=== PATIENT | female | born 1995 | race Caucasian/White ===

== ENCOUNTER → 2018-10-14 | Outpatient (CLI) | payer OTHER ==
[~2018-10-14] MED LIST: No Historical Meds
--- NOTE | 2018-10-14 11:52 | REP ---
Clinical: Pelvic pain. Evaluate IUD. Technique: Transabdominal pelvic ultrasound followed by transvaginal examination for better evaluation of the endometrium and adnexa. Findings: Bladder is unremarkable and measures 9.7 x 5.9 x 8.5 cm . Normal anteverted uterus measures 8.1 x 3.2 x 5.6 cm . The endometrial complex measures 2.2 mm thickness. No discrete uterine or endometrial abnormalities are appreciated. IUD identified in central satisfactory position. Bilateral ovaries are normal in appearance. Right ovary measures 3.3 x 2.2 x 2.9 cm. Left ovary measures 4.1 x 2.7 x 2.8 cm. No significant pelvic fluid. No adnexal mass lesion. Impression: 1. Normal pelvic ultrasound. IUD in satisfactory position. Electronically Signed by Mal Cantu MD 10/14/2018 11:44 A
== END ==
LOC: M RAD 10:46
PROVIDERS: ATTEND Advanced Practice Midwife
DX: Z97.5 Presence of (intrauterine) contraceptive device (principal)

== ENCOUNTER → 2019-02-19 | Outpatient (REF) | payer OTHER | LOC: M LAB REF 13:34 | PROVIDERS: ATTEND Advanced Practice Midwife | DX: Z12.4 Encounter for screening for malignant neoplasm of cervix (principal) ==

== ENCOUNTER → 2022-02-27 | Outpatient (CLI) | payer OTHER ==
[2022-02-27 10:28] LABS: FREE T4 1.2 NG/DL (0.76-1.46); THYROID STIMULATING HORMONE 1.54 uIU/ML (0.358-3.740)
[2022-02-27 10:30] LABS: PROGESTERONE 2.85 NG/ML
[2022-02-27 10:31] LABS: FOLLICLE STIMULATING HORMONE 4.1 mIU/mL; LUTEINIZING HORMONE 3.6 mIU/mL; PROLACTIN 18.2 NG/ML
== END ==
LOC: M PLALAB 07:31
PROVIDERS: ATTEND Specialist
DX: N92.6 Irregular menstruation, unspecified (principal)

== ENCOUNTER → 2022-08-29 | Outpatient (CLI) | payer OTHER ==
[~2022-08-29] MED LIST changes: +ISOVUE-370 76% 100ML VIAL As Ordered ONE
== END ==
LOC: M RADPRO 11:50
PROVIDERS: ATTEND Obstetrics & Gynecology
DX: N97.9 Female infertility, unspecified (principal)

== ENCOUNTER → 2022-09-04 | Outpatient (CLI) | payer OTHER ==
[~2022-09-04] MED LIST changes: -ISOVUE-370 76% 100ML VIAL As Ordered ONE
== END ==
LOC: M RAD 15:35
PROVIDERS: ATTEND Obstetrics & Gynecology
DX: N97.9 Female infertility, unspecified (principal)

== ENCOUNTER → 2022-11-08 | Outpatient (CLI) | payer OTHER | LOC: M WHC 13:18 | PROVIDERS: ATTEND Obstetrics & Gynecology | DX: N83.201 Unspecified ovarian cyst, right side (principal) ==

== ENCOUNTER → 2024-11-05 | Outpatient (REF) | payer BC ==
[2024-11-05 15:15] LABS: GC DNA AMPLIFICATION NEGATIVE (NEGATIVE)
== END ==
LOC: M PLALAB 11:28
PROVIDERS: ATTEND Nurse Practitioner Family
DX: Z34.80 Encounter for supervision of other normal pregnancy, unspecified trimester (principal)

== ENCOUNTER → 2024-11-05 | Outpatient (CLI) | payer BC | LOC: M PLALAB 11:46 | PROVIDERS: ATTEND Nurse Practitioner Family | DX: Z34.80 Encounter for supervision of other normal pregnancy, unspecified trimester (principal) ==

== ENCOUNTER → 2024-12-13 | Outpatient (CLI) | payer BC | LOC: M WHC 14:22 | PROVIDERS: ATTEND Nurse Practitioner Family | DX: Z34.80 Encounter for supervision of other normal pregnancy, unspecified trimester (principal) ==

== ENCOUNTER → 2025-01-06 | Outpatient (CLI) | payer BC | LOC: M WHC 12:09 | PROVIDERS: ATTEND Nurse Practitioner Family | DX: Z34.80 Encounter for supervision of other normal pregnancy, unspecified trimester (principal) ==

== ENCOUNTER → 2025-01-27 | Outpatient (CLI) | payer BC ==
[2025-01-27 14:07] LABS: HEMATOCRIT 36.5 % (36.0-47.0); HEMOGLOBIN 11.8 g/dl (12.0-15.5); MEAN CORPUSCULAR HEMOGLOBIN 31.3 pg (27.0-33.0); MEAN CORPUSCULAR HGB CONC 32.3 g/dl (32.0-36.5); MEAN CORPUSCULAR VOLUME 96.8 fl (80.0-96.0); PLATELET COUNT, AUTOMATED 289 10^3/uL (150-450); RED BLOOD COUNT 3.77 10^6/uL (4.00-5.40); WHITE BLOOD COUNT 8.8 10^3/uL (4.0-10.0)
[2025-01-27 15:06] LABS: HIV 1&2 SCREEN NEGATIVE (NEGATIVE)
[2025-01-27 15:14] LABS: HEPATITIS C VIRUS ABY INDEX 0.02 INDEX (<0.8)
[2025-01-27 15:30] LABS: Trichomonas vaginalis (AMP) NOT DETECTED (NEGATIVE)
[2025-01-27 15:54] LABS: GC DNA AMPLIFICATION NEGATIVE (NEGATIVE)
== END ==
LOC: M PLALAB 10:35
PROVIDERS: ATTEND Obstetrics & Gynecology
DX: Z34.92 Encounter for supervision of normal pregnancy, unspecified, second trimester (principal)

== ENCOUNTER 2025-04-23 11:36 | Outpatient (CLI) | payer BC ==
[~2025-04-23] VITALS: Ht 160 cm; Wt 93.7 kg
[2025-04-23 11:51] VITALS: BP 132/63
[2025-04-23] MEDS ORDERED: vitamin D PO (12:00)
[2025-04-23] MEDS ORDERED: PRENTAB9 PO (12:00)
[2025-04-23] MEDS ORDERED: HOME MED LIST COMPLETE! XX SCH (12:05)
[2025-04-23 12:17] VITALS: O2SAT 97
== END 2025-04-23 14:40 | disposition home or self-care (01) ==
LOC: M LDO 11:36
PROVIDERS: ATTEND Obstetrics & Gynecology
DX: O47.1 False labor at or after 37 completed weeks of gestation (principal); O09.813 Supervision of pregnancy resulting from assisted reproductive technology, third trimester; O99.213 Obesity complicating pregnancy, third trimester; E66.9 Obesity, unspecified; Z3A.39 39 weeks gestation of pregnancy
CPT/HCPCS: 59025; G0463

== ENCOUNTER 2025-04-24 11:10 | Inpatient (IN) | payer BC ==
[~2025-04-24] VITALS: Ht 160 cm; Wt 98.0 kg
[2025-04-24] VITALS (58 sets, daily range): BP systolic 81–227; BP diastolic 40–123
[~2025-04-24 11:10] MED LIST changes: +PRENTAB9 PO; +vitamin D PO
[2025-04-24] MEDS ORDERED: CARBOPROST TROMETHAMINE 250 MCG/ML AMP IM PRN (11:20)
[2025-04-24] MEDS ORDERED: OXYTOCIN DRIP 30 UNITS in IV 1 EA IV PRN (11:20)
[2025-04-24] MEDS ORDERED: TRANEXAMIC ACID INJection 1,000 MG in NS 100 ML IV PRN (11:20)
[2025-04-24] MEDS ORDERED: LIDOCAINE 1% MDV 20 ML VIAL INFIL PRN (11:20)
[2025-04-24] MEDS ORDERED: METHYLERGONOVINE MALEATE 0.2 MG/ML 1 ML VIAL IM PRN (11:20)
[2025-04-24 11:42] LABS: PLATELET COUNT, AUTOMATED 264 10^3/uL (150-450)
[2025-04-24] MEDS ORDERED: diphenhydrAMINE 50 MG/ML VIAL IV PRN (12:00)
[2025-04-24] MEDS ORDERED: EPIDURAL/PCA KEYS XX PRN (12:00)
[2025-04-24] MEDS ORDERED: ONDANSETRON 4MG 2ML VIAL IV PRN (12:00)
[2025-04-24] MEDS ORDERED: LR 500 ML IV PRN (12:00)
[2025-04-24] MEDS: LACTATED RINGER'S 1000 ML IV STA (12:00)
[2025-04-24] MEDS: LR 1,000 ML IV SCH (12:00)
[2025-04-24] MEDS ORDERED: NALOXONE INJ 0.4 MG/1 ML VIAL IV PRN (12:00)
[2025-04-24 12:39] LABS: HIV 1&2 SCREEN NEGATIVE (NEGATIVE)
[2025-04-24] MEDS: FENTANYL/ROPIVACAINE/NACL BAG 100 ML EPIDURAL SCH (12:59)
[2025-04-24 13:53] LABS: HEPATITIS C VIRUS ABY INDEX 0.08 INDEX (<0.8)
[2025-04-24] MEDS: ACETAMINOPHEN 500 MG TAB PO ONE (19:25)
[2025-04-25] VITALS (39 sets, daily range): BP systolic 101–171; BP diastolic 38–142; O2SAT 96
[2025-04-25] MEDS: OXYTOCIN DRIP 30 UNITS in IV 1 EA IV SCH ×2 (00:18→07:25)
[2025-04-25] MEDS: ACETAMINOPHEN 500 MG TAB PO ONE (05:53)
[2025-04-25] MEDS ORDERED: CALCIUM CARBONATE 500 MG CHEW U/D PO PRN (07:25)
[2025-04-25] MEDS ORDERED: ANUSOL HC CREAM 30 GM TOP PRN (07:25)
[2025-04-25] MEDS ORDERED: RHOGAM 300MCG (1500IU) INJ IM SCH (07:25)
[2025-04-25] MEDS ORDERED: DOCUSATE SODIUM 100 MG CAPSULE PO PRN (07:25)
[2025-04-25] MEDS ORDERED: LR 1,000 ML IV SCH (07:25)
[2025-04-25] MEDS ORDERED: IBUPROFEN 600 MG TAB PO PRN (07:25)
[2025-04-25] MEDS ORDERED: ACETAMINOPHEN 325 MG TAB PO PRN (07:25)
[2025-04-25] MEDS ORDERED: ONDANSETRON 4MG 2ML VIAL IV PRN (07:25)
[2025-04-25] MEDS: PRENATAL VITAMINS CHEWABLE TABLET PO SCH (09:00)
[2025-04-25] MEDS: IBUPROFEN 800 MG TAB PO PRN (13:43)
[2025-04-25] MEDS: ACETAMINOPHEN 500 MG TAB PO PRN (18:29)
[2025-04-25] MEDS: DIBUCAINE 1% OINTMENT 30 GM TOP PRN (18:37)
[2025-04-26 06:11] VITALS: BP 117/64; O2SAT 96
[2025-04-26 18:00] VITALS: BP 115/56; O2SAT 98
[2025-04-27 06:00] VITALS: BP 109/53; O2SAT 98
[2025-04-27] MEDS ORDERED: MEASLES,MUMPS,RUBELLA VACCINE INJ (MMR-II) SC.IMMUN ONE (09:00)
== END 2025-04-27 13:30 | disposition home or self-care (01) | DRG 560 ==
LOC: M LDO 11:10 → M LDI 11:22 → M OBS 04-25 09:13
PROVIDERS: ADMIT Obstetrics & Gynecology; ATTEND Obstetrics & Gynecology
PROC: 10907ZC Drainage of Amniotic Fluid, Therapeutic from Products of Conception, Via Natural or Artificial Opening (ICD-10-PCS; 2025-04-24)
PROC: 10E0XZZ Delivery of Products of Conception, External Approach (ICD-10-PCS; principal; 2025-04-25)
PROC: 0KQM0ZZ Repair Perineum Muscle, Open Approach (ICD-10-PCS; 2025-04-25)
DX: O70.1 Second degree perineal laceration during delivery (principal); Z37.0 Single live birth; Z3A.40 40 weeks gestation of pregnancy

== ENCOUNTER → 2025-07-21 | Outpatient (REF) | payer BC | LOC: M SFHCWAGY 13:12 | PROVIDERS: ATTEND Advanced Practice Midwife | DX: Z12.4 Encounter for screening for malignant neoplasm of cervix (principal) ==